=== PATIENT | male | born 1985 | race Asian ===

== ENCOUNTER 2016-07-01 08:48 | Outpatient (CLI) | payer OTHER | END 2016-07-01 08:51 | disposition short-term general hospital (02) | LOC: AMB 08:48 | DX: R07.89 Other chest pain (principal); M79.602 Pain in left arm; R53.1 Weakness | CPT/HCPCS: A0425; A0427 ==

== ENCOUNTER 2016-07-01 09:00 | Emergency (ER) | payer OTHER ==
[~2016-07-01] VITALS: Ht 177.8 cm; Wt 74.8 kg
[2016-07-01 08:55] VITALS: TEMP 98.1
[2016-07-01 09:17] LABS: PLATELET COUNT 86 K/uL (142-355)
[2016-07-01 09:29] LABS: SODIUM 136 mmol/L (136-145)
[2016-07-01 11:50] VITALS: BP 118/79
== END 2016-07-01 11:52 | disposition home or self-care (01) ==
LOC: ED 09:00
DX: K21.9 Gastro-esophageal reflux disease without esophagitis (principal); F10.20 Alcohol dependence, uncomplicated
CPT/HCPCS: 36415; 80053; 80307; 80320; 82550; 82553; 84484; 85027; 86318; 93005; 96365; 99284; G0479; J3411

== ENCOUNTER 2016-07-02 12:11 | Outpatient (CLI) | payer OTHER | END 2016-07-02 12:17 | disposition short-term general hospital (02) | LOC: AMB 12:11 | DX: R56.9 Unspecified convulsions (principal) | CPT/HCPCS: A0425; A0427 ==

== ENCOUNTER 2016-07-02 12:15 | Emergency (ER) | payer OTHER ==
[~2016-07-02] VITALS: Ht 177.8 cm; Wt 74.8 kg
[2016-07-02 12:20] VITALS: TEMP 98.8
[2016-07-02 12:56] LABS: PLATELET COUNT 60 K/uL (142-355)
[2016-07-02 12:58] LABS: POTASSIUM 4.1 mmol/L (3.6-5.2); SODIUM 130 mmol/L (136-145)
[2016-07-02 14:45] VITALS: BP 161/91
== END 2016-07-02 14:45 | disposition home or self-care (01) ==
LOC: ED 12:15
DX: R56.9 Unspecified convulsions (principal); F10.239 Alcohol dependence with withdrawal, unspecified; R74.8 Abnormal levels of other serum enzymes
CPT/HCPCS: 36415; 80053; 80307; 80320; 85027; 99283; G0479

== ENCOUNTER 2017-06-03 10:54 | Emergency (ER) | payer OTHER ==
[~2017-06-03] VITALS: Ht 180.3 cm; Wt 83.0 kg
[2017-06-03 12:23] VITALS: BP 149/71; TEMP 98.1
== END 2017-06-03 12:23 | disposition home or self-care (01) ==
LOC: ED 10:54
DX: M54.5 Low back pain (principal); M54.16 Radiculopathy, lumbar region
CPT/HCPCS: 96372; 99283; J1100; J1885; J2360

== ENCOUNTER 2017-07-13 23:12 | Outpatient (CLI) | payer OTHER | END 2017-07-13 23:22 | disposition short-term general hospital (02) | LOC: AMB 23:12 | DX: R41.82 Altered mental status, unspecified (principal); V49.88XA Car occupant (driver) (passenger) injured in other specified transport accidents, initial encounter; Y92.488 Other paved roadways as the place of occurrence of the external cause | CPT/HCPCS: A0425; A0427 ==

== ENCOUNTER 2017-07-13 23:28 | Emergency (ER) | payer OTHER ==
[~2017-07-13] VITALS: Ht 170.2 cm; Wt 77.1 kg
[2017-07-14 00:43] LABS: PLATELET COUNT 160 K/uL (142-355)
[2017-07-14 00:46] LABS: POTASSIUM 3.4 mmol/L (3.6-5.2)
[2017-07-14 02:24] VITALS: BP 123/69; TEMP 98.3
== END 2017-07-14 02:55 | disposition home or self-care (01) ==
LOC: ED 23:28
DX: F10.10 Alcohol abuse, uncomplicated (principal); V89.0XXA Person injured in unspecified motor-vehicle accident, nontraffic, initial encounter
CPT/HCPCS: 80053; 80307; 80320; 81000; 85027; 96360; 96361; 99284; J7120

== ENCOUNTER 2018-05-15 16:48 | Inpatient (IN) | payer OTHER ==
[~2018-05-15] VITALS: Ht 177.8 cm; Wt 66.2 kg
[2018-05-15 17:11] VITALS: BP 132/84; TEMP 99.2
[2018-05-15 17:31] LABS: PLATELET COUNT 93 K/uL (142-355)
[2018-05-15 17:36] LABS: POTASSIUM 3.5 mmol/L (3.6-5.2)
[2018-05-15 21:16] VITALS: BP 146/82; TEMP 99
[2018-05-15 22:50] VITALS: BP 137/92
[2018-05-15 23:00] VITALS: BP 140/88; TEMP 98.3
[2018-05-16] VITALS (25 sets, daily range): BP systolic 112–154; BP diastolic 73–100; TEMP 97.3–98.4; Ht 177.8 cm; Wt 66.2 kg
[2018-05-16 07:24] LABS: POTASSIUM 2.6 mmol/L (3.6-5.2)
[2018-05-17] VITALS (22 sets, daily range): BP systolic 111–168; BP diastolic 68–100; TEMP 98.6–99
[2018-05-17 07:45] LABS: PLATELET COUNT 123 K/uL (142-355)
[2018-05-17 07:53] LABS: POTASSIUM 3.3 mmol/L (3.6-5.2)
[2018-05-18] VITALS (22 sets, daily range): BP systolic 120–172; BP diastolic 70–99; TEMP 98–98.8
[2018-05-18 08:58] LABS: PLATELET COUNT 160 K/uL (142-355)
[2018-05-18 09:11] LABS: POTASSIUM 3.8 mmol/L (3.6-5.2)
[2018-05-19] VITALS (7 sets, daily range): BP systolic 119–144; BP diastolic 70–86; TEMP 97.5–98.8
[2018-05-19 08:35] LABS: POTASSIUM 3.8 mmol/L (3.6-5.2)
[2018-05-20] VITALS: BP 125/77; TEMP 98.8
[2018-05-20 04:00] VITALS: BP 138/83; TEMP 98.9
[2018-05-20 08:00] VITALS: BP 138/83; TEMP 98.4
[2018-05-20 11:52] VITALS: BP 126/80; TEMP 98.4
== END 2018-05-20 14:15 | disposition left against medical advice (07) | DRG 894 ==
LOC: ED 16:48 → ICU 21:09
PROVIDERS: Emergency Medicine; Family Medicine; ADMIT Internal Medicine
DX: F10.231 Alcohol dependence with withdrawal delirium (principal); G40.509 Epileptic seizures related to external causes, not intractable, without status epilepticus; E83.42 Hypomagnesemia; E87.6 Hypokalemia; K21.9 Gastro-esophageal reflux disease without esophagitis
CPT/HCPCS: 36415; 80048; 80053; 80307; 80320; 80329; 81000; 83735; 85027; 93005; 96365; 96375; 96376; 99285; J1630; J2060; J3411